=== PATIENT | male | born 1950 | race Caucasian/White ===

== ENCOUNTER 2018-02-14 12:55 | Inpatient (IN) | payer OTHER, MEDICARE ==
[2018-02-14] MEDS: SODIUM CHLOR 0.9% 1000 ML INJ 1,000 ML IV ×2 (14:43→16:56)
[2018-02-14] MEDS: GLUCAGON 1 MG/ML VIAL IV PUSH (14:44)
[2018-02-14] MEDS ORDERED: CHLORHEXIDINE GLUCONATE 2 % 1 PACK (2 CLOTHS) TOPICAL ×2 (15:15→21:45)
[2018-02-14] MEDS ORDERED: POVIDONE IODINE 5% (ANTISEPSIS KIT) 4 APPLICATIONS EACH NARE ×2 (15:15→21:45)
[2018-02-14] MEDS ORDERED: INSULIN HUMAN REGULAR 1,000 UNITS/10 ML VIAL SQ ×2 (15:15→21:45)
[2018-02-14] MEDS ORDERED: LACTATED RINGER'S 1000 ML IV ×2 (15:15→21:45)
[2018-02-14] MEDS ORDERED: SODIUM CHLORID 0.9% 500 ML IV ×2 (15:15→21:45)
[2018-02-14] MEDS ORDERED: METOPROLOL TARTRATE 25 MG TAB PO ×2 (15:15→21:45)
[2018-02-14] MEDS ORDERED: BISACODYL 10 MG SUPP RECTAL (17:00)
[2018-02-14] MEDS ORDERED: ONDANSETRON HCL 4 MG/2 ML VIAL IVP (17:00)
[2018-02-14] MEDS ORDERED: ACETAMINOPHEN 325 MG TAB PO (17:00)
[2018-02-14] MEDS ORDERED: NALOXONE HCL 0.4 MG/ML AMP IV PUSH (17:00)
[2018-02-14] MEDS ORDERED: MAGNESIUM HYDROXIDE SUSP 30 ML CUP PO (17:00)
[2018-02-14] MEDS ORDERED: LACTULOSE SYRUP 20 GM/30 ML CUP PO (17:00)
[2018-02-14] MEDS ORDERED: SENNOSIDES 8.6 MG TAB PO (17:00)
[2018-02-14] MEDS ORDERED: ALPRAZolam 0.25 MG TAB PO (17:15)
[2018-02-14] MEDS ORDERED: DO NOT ADM ANY ANTICOAGULANT DRUGS (17:45)
[2018-02-14] MEDS: DOCUSATE SODIUM 50 MG/SENNA 8.6 MG TAB PO (21:00)
[2018-02-14 22:17] LABS: AUTOMATED NEUTROPHIL # 5.5 TH/MM3 (1.8-7.7); BASOPHIL % 0.6 % (0.0-2.0); EOSINOPHIL # 0.3 TH/MM3 (0-0.4); EOSINOPHIL % 3.7 % (0.0-4.0); HEMO FLAGS DIFF FINAL; HEMOGLOBIN 14.3 GM/DL (13.0-17.0); LYMPH % 13.9 % (9.0-44.0); LYMPHOCYTE # 1.1 TH/MM3 (1.0-4.8); MEAN CELL VOLUME 96.6 FL (80.0-100.0); MEAN CORPUSCULAR HEMOGLOBIN 32.8 PG (27.0-34.0); MEAN PLATELET VOLUME 8.3 FL (7.0-11.0); MONO % 10.9 % (0.0-8.0); MONOCYTE # 0.8 TH/MM3 (0-0.9); NEUT % 70.9 % (16.0-70.0); PLATELET COUNT 221 TH/MM3 (150-450); RED BLOOD COUNT 4.34 MIL/MM3 (4.50-5.90); RED CELL DISTRIBUTION WIDTH 14.1 % (11.6-17.2); WHITE BLOOD COUNT 7.8 TH/MM3 (4.0-11.0)
[2018-02-14 22:36] LABS: ALBUMIN 3.8 GM/DL (3.4-5.0); ANION GAP 13 MEQ/L (5-15); AST (GOT) 41 U/L (15-37); BICARBONATE 22.8 MEQ/L (21.0-32.0); BLOOD UREA NITROGEN 13 MG/DL (7-18); CALCIUM 8.6 MG/DL (8.5-10.1); CHLORIDE 103 MEQ/L (98-107); CREATININE 0.88 MG/DL (0.60-1.30); GLOMERULAR FILTRATION RATE 86 ML/MIN (>89); GLUCOSE,RANDOM 79 MG/DL (74-106); POTASSIUM 3.8 MEQ/L (3.5-5.1); SODIUM (NA) 139 MEQ/L (136-145)
[2018-02-14 22:37] LABS: ALT (GPT) 31 U/L (12-78)
[2018-02-14 22:39] LABS: ALKALINE PHOSPHATASE 97 U/L (45-117); TOTAL BILIRUBIN ADULT 0.6 MG/DL (0.2-1.0); TOTAL PROTEIN 7.6 GM/DL (6.4-8.2)
[2018-02-15] MEDS: SODIUM CHLOR 0.9% 1000 ML INJ 1,000 ML IV ×2 (04:16→10:48)
[2018-02-15 06:20] LABS: ALBUMIN 3.5 GM/DL (3.4-5.0); ALT (GPT) 28 U/L (12-78); ANION GAP 14 MEQ/L (5-15); AST (GOT) 32 U/L (15-37); BLOOD UREA NITROGEN 14 MG/DL (7-18); CALCIUM 8.3 MG/DL (8.5-10.1); CHLORIDE 106 MEQ/L (98-107); CREATININE 0.79 MG/DL (0.60-1.30); GLOMERULAR FILTRATION RATE 97 ML/MIN (>89); GLUCOSE,RANDOM 71 MG/DL (74-106); POTASSIUM 3.6 MEQ/L (3.5-5.1); SODIUM (NA) 142 MEQ/L (136-145)
[2018-02-15 06:22] LABS: ALKALINE PHOSPHATASE 85 U/L (45-117); TOTAL BILIRUBIN ADULT 0.6 MG/DL (0.2-1.0); TOTAL PROTEIN 7.3 GM/DL (6.4-8.2)
[2018-02-15] MEDS: PRAVASTATIN SOD 20 MG TAB PO (08:25)
[2018-02-15] MEDS: LISINOPRIL 20 MG TAB PO (08:25)
[2018-02-15] MEDS: HYDROCHLOROTHIAZIDE 12.5 MG CAP PO (08:25)
[2018-02-15] MEDS: PANTOPRAZOLE SOD 20 MG DELAYED RELEASE TAB PO (08:25)
[2018-02-15] MEDS: DOCUSATE SODIUM 50 MG/SENNA 8.6 MG TAB PO (08:25)
[2018-02-15] MEDS: METOPROLOL SUCCINATE 25 MG EXTENDED RELEASE TAB PO (08:25)
[2018-02-15] MEDS ORDERED: DO NOT ADM ANY ANTICOAGULANT DRUGS (10:30)
[2018-02-15] MEDS: SUCRALFATE 1 GM/10 ML CUP PO ×2 (10:48→17:25)
[2018-02-15] MEDS: PANTOPRAZOLE SODIUM 40 MG VIAL IV PUSH (10:48)
[2018-02-15] MEDS ORDERED: LIDOCAINE HCL 1% PF 5 ML SYRINGE OTHER (12:00)
[2018-02-15] MEDS ORDERED: PROPOFOL 200 MG/20 ML AMP IV (12:00)
[2018-02-15] MEDS ORDERED: SUCCINYLCHOLINE CHLORIDE 100 MG/5 ML SYRINGE IV PUSH (12:00)
== END 2018-02-15 19:21 | disposition home or self-care (01) | DRG 395 ==
LOC: PHOR 12:55 → PHEDA 15:21 → PH3B 18:13 → N06A 20:34
PROC: 0DC58ZZ Extirpation of Matter from Esophagus, Via Natural or Artificial Opening Endoscopic (ICD-10-PCS; principal; 2018-02-14 15:13)
PROC: 0DC48ZZ Extirpation of Matter from Esophagogastric Junction, Via Natural or Artificial Opening Endoscopic (ICD-10-PCS; 2018-02-14 15:13)
DX: T18.128A Food in esophagus causing other injury, initial encounter (principal); R13.10 Dysphagia, unspecified; I10 Essential (primary) hypertension; E78.5 Hyperlipidemia, unspecified; F41.9 Anxiety disorder, unspecified; K21.9 Gastro-esophageal reflux disease without esophagitis; K20.9 Esophagitis, unspecified; K44.9 Diaphragmatic hernia without obstruction or gangrene
CPT/HCPCS: 71250; 76000; 80053; 85025; 93005